=== PATIENT | female | born 1935 | race Caucasian/White ===

== ENCOUNTER 2020-03-31 18:04 | Outpatient (CLI) | payer MEDICARE ==
[~2020-03-31 18:04] MED LIST: APIX5TAB3 PO; ASPI81TA52 PO; ATOR-2 PO; BUDE10.26 PO; CALC-723 PO; CARB15DR58 EACHEYE; CITA10TA9 PO; DIGO125T97 PO; DILT240C88 PO; FLUT16SP11 BOTHNARES; FURO40TA4 PO; HYDR30CR79 TOP; LOSA100T57 PO; MAGN200T5 PO; NITR0.4T51 SL; OMEP-50 PO; POTA-82 PO; PRED10TA23 PO; TIOT18CA3 PO
[2020-03-31 21:04] LABS: UA COLLECTION TYPE VOIDED
[2020-03-31 21:05] LABS: CLARITY,URINE CLEAR (Clear); COLOR,URINE YELLOW (Yellow); GLUCOSE, URINE NEGATIVE (Neg); KETONES,URINE NEGATIVE (Neg); NITRITES, URINE NEGATIVE (Neg); OCCULT BLOOD,URINE NEGATIVE (Neg); PH,URINE 6.5 (4.8-8.0); PROTEIN,URINE NEGATIVE (Neg)
[2020-03-31 21:06] LABS: LEUKOCYTE ESTERASE ,URINE NEGATIVE (Neg); UROBILINOGEN,URINE 0.2 E.U/dL (0.2-1.0)
== END 2020-03-31 23:59 | disposition home or self-care (01) ==
LOC: LAB SPEC 18:04
PROVIDERS: ATTEND Internal Medicine
DX: N39.0 Urinary tract infection, site not specified (principal)
CPT/HCPCS: 81003

== ENCOUNTER 2020-08-21 08:05 | Emergency (ER) | payer OTHER, MEDICARE ==
[~2020-08-21] VITALS: Ht 174 cm; Wt 47.7 kg
[~2020-08-21 08:05] MED LIST changes: -ASPI81TA52 PO; -CITA10TA9 PO; +FURO20TA4 PO; -FURO40TA4 PO; +GABA-530 PO; -HYDR30CR79 TOP; +LISI10TA27 PO; +LORA-269 PO; -LOSA100T57 PO; -MAGN200T5 PO; +MAGN400T29 PO; +OXYC-134 PO; -TIOT18CA3 PO; +TIOT4MIS5 PO
--- NOTE | 2020-08-21 08:23 | NUR ---
PT. STATES HER BELLY IS HURTING HER THE MOST RIGHT NOW 07/03. 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 4 FALLS SINCE 2019. THAT HAS CAUSED ALL HER BACK FRACTURES. PT. STATES SHE IS NOT A DIABEDTIC. BUT HER FOOT TURNED BLACK AND THEY TOOK HER LEFT LEG OFF.
[2020-08-21] MEDS ORDERED: normal saline 1000ML IV soln IVB ONE (08:45)
[2020-08-21] MEDS ORDERED: ondansetron/PF 4mg/2ml inj IV ONE (08:45)
[2020-08-21] MEDS ORDERED: iohexol 300mg/ml 100ml inj. ONE (09:28)
[2020-08-21 10:03] LABS: BASOPHILS # (AUTO) 0.1 X10'3 (0-0.2); BASOPHILS % (AUTO) 0.7 % (0-1); EOSINOPHILS # (AUTO) 0.2 X10'3 (0-0.9); EOSINOPHILS % (AUTO) 1.6 % (0-6); HEMATOCRIT 43.9 % (35.0-45.0); HEMOGLOBIN 14.1 g/dl (12.0-16.0); LYMPHOCYTES % (AUTO) 6.4 % (21-51); MEAN CORPUSCULAR HEMOGLOBIN 25.1 PG (27.0-31.0); MEAN CORPUSCULAR HGB CONC 32.1 g/dL (33.0-36.5); MEAN CORPUSCULAR VOLUME 78.2 FL (78-98); MEAN PLATELET VOLUME 8.2 FL (7.4-10.4); MONOCYTES # (AUTO) 1.2 X10'3 (0-0.9); MONOCYTES % (AUTO) 7.9 % (2-12); NEUTROPHILS # (AUTO) 12.7 X10'3 (1.8-7.7); NEUTROPHILS % (AUTO) 83.4 % (42-75); PLATELET COUNT 574 X10'3 (140-440); RED BLOOD COUNT 5.61 X10'6 (4.20-5.60); RED CELL DISTRIBUTION WIDTH 19.6 % (11.5-14.5); WHITE BLOOD COUNT 15.2 X10'3 (4.5-11.0)
[2020-08-21 10:21] LABS: ALANINE AMINOTRANSFERASE 17 U/L (12-78); ALBUMIN 2.7 G/DL (3.4-5.0); ALBUMIN/GLOBULIN RATIO 0.8 (1.1-1.5); ALKALINE PHOSPHATASE 145 IU/L (46-116); ANION GAP 2 (8-16); ASPARTATE AMINO TRANSFERASE 29 U/L (10-37); BILIRUBIN,TOTAL 0.7 MG/DL (0.1-1.0); BLOOD UREA NITROGEN 15 MG/DL (7-18); BUN/CREATININE RATIO 25.9 (6.6-38.0); CALCIUM 9.2 MG/DL (8.5-10.1); CHLORIDE 101 MMOL/L (99-107); CREATININE 0.58 MG/DL (0.40-0.90); GLUCOSE 116 MG/DL (70-104); POTASSIUM 4.4 MMOL/L (3.5-5.1); SODIUM 137 MMOL/L (135-145); TOTAL CARBON DIOXIDE 34.3 MMOL/L (24-32); TOTAL PROTEIN 6.2 G/DL (6.4-8.2); eGFR > 90 ML/MIN
[2020-08-21 10:37] LABS: ANISOCYTOSIS 2+; MICROCYTOSIS 1+; PLATELET ESTIMATE INCREASED
[2020-08-21 10:38] LABS: BURR CELLS FEW; ELLIPTOCYTES 1+; LARGE PLATELETS FEW; SCHISTOCYTES FEW
[2020-08-21 10:39] LABS: POLYCHROMASIA FEW
[2020-08-21] MEDS ORDERED: POLY17PO10 PO (13:50)
[2020-08-21] MEDS ORDERED: DOCU-148 PO (13:50)
[2020-08-21] MEDS ORDERED: magnesium citrate 296ml oral solution PO ONE (14:35)
[2020-08-21 15:14] VITALS: BP 185/100
== END 2020-08-21 17:47 | disposition home or self-care (01) ==
LOC: ER 08:06
DX: R10.84 Generalized abdominal pain (principal); K59.00 Constipation, unspecified; I48.91 Unspecified atrial fibrillation; I50.9 Heart failure, unspecified; I11.0 Hypertensive heart disease with heart failure; E78.00 Pure hypercholesterolemia, unspecified; J44.9 Chronic obstructive pulmonary disease, unspecified; M19.90 Unspecified osteoarthritis, unspecified site; G89.29 Other chronic pain; Z85.9 Personal history of malignant neoplasm, unspecified; Z89.512 Acquired absence of left leg below knee; Z86.718 Personal history of other venous thrombosis and embolism; Z79.899 Other long term (current) drug therapy
CPT/HCPCS: 36415; 74177; 80053; 85008; 85025; 96360; 99285; J7030; Q9967